=== PATIENT | female | born 1950 | race Two or more races ===

== ENCOUNTER 2020-12-02 09:25 | Day surgery (SDC) | payer BC, MEDICARE ==
[~2020-12-02] VITALS: Ht 167.6 cm; Wt 74.4 kg
[~2020-12-02 09:25] MED LIST: ZOLP10TA PO
[2020-12-02] MEDS ORDERED: BUPIVACAINE HCL 50 ML ONE (14:29)
[2020-12-02] MEDS ORDERED: EPINEPHrine HCL 1 MG/1 ML AMP ONE (14:31)
[2020-12-02] MEDS ORDERED: MIDAZOLAM HCL 2MG/2ML 2ml VIAL (1mg/ml) ONE (14:40)
[2020-12-02] MEDS ORDERED: fentaNYL CITRATE 100 MCG/2 ML VL ONE (14:40)
[2020-12-02] MEDS ORDERED: KETOROLAC TROMETH 30 MG/ML 1ML VIAL ONE (14:41)
[2020-12-02] MEDS ORDERED: PROPOFOL 10 MG/ML 20 ML IV ONE (14:41)
[2020-12-02] MEDS ORDERED: GLYCOPYRROLATE 0.2 MG/ML 1ML VIAL ONE (14:41)
[2020-12-02] MEDS ORDERED: LIDOCAINE 2% (LOCAL ANESTH.) PF 5ml SDV ONE (14:41)
[2020-12-02] MEDS ORDERED: ONDANSETRON HCL 4 MG/2 ML VIAL ONE (14:41)
[2020-12-02] MEDS ORDERED: ceFAZolin 1GM/50ML 50 ML IV ONE (14:51)
[2020-12-02] MEDS ORDERED: DexAMETHasone SOD PHOS 10MG/1ML VIAL INJ IV ONE (14:54)
[2020-12-02] MEDS ORDERED: MEPERIDINE HCL (50 MG/ML) 1 ML VIAL ONE (15:12)
[2020-12-02] MEDS ORDERED: HYDROmorphone HCL 2 MG/ML VL IV PRN (16:00)
[2020-12-02] MEDS ORDERED: ONDANSETRON HCL 4 MG/2 ML VIAL IV PRN (16:00)
[2020-12-02 16:25] VITALS: BP 139/84
== END 2020-12-02 17:00 | disposition home or self-care (01) ==
LOC: SUR 09:25
PROVIDERS: ATTEND Orthopaedic Surgery Sports Medicine
DX: M23.204 Derangement of unspecified medial meniscus due to old tear or injury, left knee (principal); Z20.822 Contact with and (suspected) exposure to COVID-19; Z98.890 Other specified postprocedural states; Z79.899 Other long term (current) drug therapy; Z90.721 Acquired absence of ovaries, unilateral
CPT/HCPCS: 29879; 29881; J0171; J0690; J1100; J1885; J2001; J2175; J2250; J2405; J2704; J3010; J3490; U0003

== ENCOUNTER → 2021-12-22 | Day surgery (SDC) | payer BC, MEDICARE ==
[~2021-12-22] VITALS: Ht 167.6 cm; Wt 74.4 kg
[~2021-12-22] MED LIST changes: +BUPIVACAINE HCL 50 ML ONE; +DOXAPRAM HCL 20 MG/ML 20ML VIAL INJ IV ONE; +DexAMETHasone SOD PHOS 10MG/1ML VIAL INJ ONE; +HYDROmorphone HCL 2 MG/ML VL IV PRN; +MEPERIDINE HCL (25 MG/ML) 1ML VIAL ONE; +METOCLOPRAMIDE HCL 5MG/ml INJ 2ml VIAL IV PRN; +MIDAZOLAM HCL 2MG/2ML 2ml VIAL (1mg/ml) ONE; +MORPHINE SULFATE 4 MG/ML SYR/VIAL IV PRN; +ONDANSETRON HCL 4 MG/2 ML VIAL ONE; +PROPOFOL 10 MG/ML 20 ML IV ONE; +ROCURONIUM 10MG/ML 10ML VIAL IV ONE; +SODIUM CHLORIDE LOCK 10 ML ONE; +SUCCINYLCHOLINE CHLORIDE 20 MG/ML 10ML VIAL IV ONE; +ceFAZolin 1GM/50ML 100 ML IV ONE; +fentaNYL CITRATE 100 MCG/2 ML VL ONE
[2021-12-22 09:00] VITALS: BP 140/84
== END | disposition home or self-care (01) ==
LOC: SUR 06:20
PROVIDERS: ATTEND Orthopaedic Surgery Sports Medicine
DX: S83.271A Complex tear of lateral meniscus, current injury, right knee, initial encounter (principal); S83.231A Complex tear of medial meniscus, current injury, right knee, initial encounter; M94.261 Chondromalacia, right knee; Z98.890 Other specified postprocedural states; Z79.899 Other long term (current) drug therapy; Z20.822 Contact with and (suspected) exposure to COVID-19; X58.XXXA Exposure to other specified factors, initial encounter; Y93.89 Activity, other specified; Y92.89 Other specified places as the place of occurrence of the external cause; Y99.8 Other external cause status
CPT/HCPCS: 29880; J0330; J0690; J1100; J2175; J2250; J2405; J2704; J3010; J3490; U0003